=== PATIENT | female | born 1985 | race Two or more races ===

== ENCOUNTER 2018-07-14 15:28 | Outpatient (CLI) | payer OTHER | END 2018-07-14 16:29 | disposition home or self-care (01) | LOC: NST 15:28 | DX: Z34.83 Encounter for supervision of other normal pregnancy, third trimester (principal) ==

== ENCOUNTER 2018-08-20 12:02 | Inpatient (IN) | payer OTHER ==
[~2018-08-20] VITALS: Ht 162.6 cm; Wt 87.1 kg
[2018-08-20] MEDS ORDERED: PRENATAL TABLE1 EAC1 PO (13:04)
== END 2018-08-22 14:29 | disposition home or self-care (01) | DRG 807 ==
LOC: LDR 12:02 → SURG-SUITE 12:02
PROVIDERS: ADMIT Specialist
PROC: 10E0XZZ Delivery of Products of Conception, External Approach (ICD-10-PCS; principal; 2018-08-20)
PROC: 0W8NXZZ Division of Female Perineum, External Approach (ICD-10-PCS; 2018-08-20)
PROC: 4A1HXCZ Monitoring of Products of Conception, Cardiac Rate, External Approach (ICD-10-PCS; 2018-08-20)
DX: O80 Encounter for full-term uncomplicated delivery (principal); Z37.0 Single live birth; Z3A.39 39 weeks gestation of pregnancy; Z22.330 Carrier of Group B streptococcus

== ENCOUNTER 2018-09-01 20:35 | Emergency (ER) | payer OTHER ==
[~2018-09-01] VITALS: Ht 162.6 cm; Wt 86.2 kg
[~2018-09-01 20:35] MED LIST: PRENATAL TABLE1 EAC1 PO
== END 2018-09-01 23:44 | disposition home or self-care (01) ==
LOC: ER 20:35
DX: R10.84 Generalized abdominal pain (principal)

== ENCOUNTER 2018-09-03 22:19 | Inpatient (IN) | payer OTHER ==
[~2018-09-03] VITALS: Ht 162.6 cm; Wt 86.2 kg
--- NOTE | 2018-09-03 22:34 | NUR ---
PACIENTE ALERTA,ORIENTADA EN ENID ESFERAS.REFIERE DOLOR ABDOMINAL,NAUSEAS DESDE ARIANNE. GINECOLOGO . PACIENTE [place] A LEANDRO HACEN [address].
--- NOTE | 2018-09-04 00:25 | NUR ---
PT ALERTA Y ORIENTADA X3 ESFERAS SE LE ORIENTA SOBRE TX Y REFIERE ENTENDER. SE MARY JANE MUESTRAS DE CHRISTO CON TECNICAS ASEPTICAS. SE ADMINSITRAN MEDICAMENTOS ORDENADOS. PT [place].
--- NOTE | 2018-09-04 08:10 | NUR ---
SE RECIBE DE TURNO ANTERIOR. PACIENTE FEMENINA. ALERTA Y ORIENTADA EN ENID ESFERAS. SE OBSERVA CON BUEN PATRON RESPIRATORIO. PIEL TIBIA AL TACTO. CANALIZACION PATENTE, PHOEBE DE EDEMA Y/O ENROJECIMIENTO RECIBIENDO 0.9%NSS @ 150 ML/HR. PACIENTE EN ESPERA DE CONSULTA CON DR Ivan PHILLIPS.
[2018-09-06] MEDS ORDERED: OMEPRAZOLE20 MG PO (08:56)
[2018-09-06] MEDS ORDERED: PERCOCET 5-3251 EACH PO (08:56)
== END 2018-09-06 09:07 | disposition home or self-care (01) | DRG 419 ==
LOC: ER 22:19 → OB/GYN 09-04 12:57 → SEC-K 09-04 12:57 → OB/GYN 09-04 14:47
PROVIDERS: ADMIT Surgery
PROC: BW40ZZZ Ultrasonography of Abdomen (ICD-10-PCS; 2018-09-04)
PROC: BF37ZZZ Magnetic Resonance Imaging (MRI) of Pancreas (ICD-10-PCS; 2018-09-04)
PROC: 0FT44ZZ Resection of Gallbladder, Percutaneous Endoscopic Approach (ICD-10-PCS; principal; 2018-09-05 21:00)
DX: K81.0 Acute cholecystitis (principal); K76.89 Other specified diseases of liver; I10 Essential (primary) hypertension

== ENCOUNTER 2021-06-15 13:49 | Outpatient (CLI) | payer OTHER ==
[~2021-06-15 13:49] MED LIST changes: +OMEPRAZOLE20 MG PO; +PERCOCET 5-3251 EACH PO
== END 2021-06-15 14:25 | disposition home or self-care (01) ==
LOC: PRENATAL 13:49
PROVIDERS: ATTEND Obstetrics & Gynecology Maternal & Fetal Medicine
DX: O09.529 Supervision of elderly multigravida, unspecified trimester (principal); O36.80X0 Pregnancy with inconclusive fetal viability, not applicable or unspecified

== ENCOUNTER 2021-07-29 07:52 | Outpatient (CLI) | payer OTHER | END 2021-07-29 08:47 | disposition home or self-care (01) | LOC: PRENATAL 07:52 | PROVIDERS: ATTEND Obstetrics & Gynecology Maternal & Fetal Medicine | DX: O35.0XX0 Maternal care for (suspected) central nervous system malformation in fetus, not applicable or unspecified (principal); O35.3XX0 Maternal care for (suspected) damage to fetus from viral disease in mother, not applicable or unspecified; O09.529 Supervision of elderly multigravida, unspecified trimester; Z3A.20 20 weeks gestation of pregnancy ==

== ENCOUNTER 2021-12-15 09:16 | Inpatient (IN) | payer OTHER ==
[~2021-12-15] VITALS: Ht 162.6 cm; Wt 90.7 kg
== END 2021-12-21 13:02 | disposition home or self-care (01) | DRG 807 ==
LOC: OB/GYN 09:16 → LDR 12-19 04:45 → OB/GYN 12-19 08:25
PROVIDERS: ADMIT Specialist; ATTEND Specialist
PROC: 10E0XZZ Delivery of Products of Conception, External Approach (ICD-10-PCS; principal; 2021-12-19)
PROC: 0KQM0ZZ Repair Perineum Muscle, Open Approach (ICD-10-PCS; 2021-12-19)
PROC: 4A1HXCZ Monitoring of Products of Conception, Cardiac Rate, External Approach (ICD-10-PCS; 2021-12-19)
DX: O70.1 Second degree perineal laceration during delivery (principal); Z37.0 Single live birth; Z3A.38 38 weeks gestation of pregnancy; Z20.822 Contact with and (suspected) exposure to COVID-19